=== PATIENT | female | born 1960 | race Caucasian/White ===

== ENCOUNTER → 2016-06-18 | Outpatient (CLI) | payer OTHER ==
--- NOTE | 2016-06-18 09:35 | MA ---
Screening Digital Mammogram Clinical Indications: Routine screening. Technique: Standard cephalocaudal and mediolateral oblique projections are obtained. This examinati on is processed by the [employer] computer aided detection system. Comparison: May 2015, May 2014, April 2013 and April 2012 Breast density: B; There are scattered fibroglandular densities. Findings: CAD was reviewed. No suspicious findings are identified. Impression: Negative mammogram. . BI-RADS 1. Recommendation: Routine screening is recommended in one year. [facility] will send a result letter to the patient. Negative mammography should not preclude additional workup of a clinically suspicious finding. The patient's information is entered into a reminder system with a target due date for her next mammo gram.
== END ==
LOC: CIMAGING 08:31
DX: Z12.31 Encounter for screening mammogram for malignant neoplasm of breast (principal)
CPT/HCPCS: G0202

== ENCOUNTER → 2016-10-07 | Outpatient (CLI) | payer OTHER | LOC: FIMAGING 14:14 | PROVIDERS: ATTEND Family Medicine | DX: Z13.820 Encounter for screening for osteoporosis (principal); Z82.62 Family history of osteoporosis ==

== ENCOUNTER → 2017-07-02 | Outpatient (CLI) | payer OTHER | LOC: CIMAGING 14:50 | PROVIDERS: ATTEND Family Medicine | DX: Z12.31 Encounter for screening mammogram for malignant neoplasm of breast (principal) ==

== ENCOUNTER → 2018-07-07 | Outpatient (CLI) | payer OTHER | LOC: CIMAGING 14:55 | PROVIDERS: ATTEND Family Medicine | DX: Z12.31 Encounter for screening mammogram for malignant neoplasm of breast (principal) ==

== ENCOUNTER 2018-10-23 10:16 | Observation (INO) | payer OTHER ==
--- NOTE | 2018-10-23 10:10 | EDPHY ---
H & P Time Seen by Provider: 10/23/18 10:16 Constitutional: Initial Vital Signs Temperature (C) 36.6 C 10/23/18 10:20 Heart Rate 81 10/23/18 10:20 Respiratory Rate 18 10/23/18 10:20 O2 Sat (%) 100 10/23/18 10:20 O2 Delivery Mode Room Air Allergies/Adverse Reactions: egg Allergy (Verified 10/23/18 11:33) kiwi Allergy (Verified 10/23/18 11:33) wheat Allergy (Verified 10/23/18 11:33) Home Medications: Medication Instructions Recorded Hydrochlorothiazide [HCTZ (RX)] 12/23/14 ALPRAZolam 10/23/18 Gabapentin 10/23/18 traMADol 10/23/18 Medical Decision Making ED Course/Re-evaluation: CHIEF COMPLAINT: Near-syncope HISTORY OF PRESENT ILLNESS: The patient is a 58 y/o female arriving via EMS complaining of feeling dizzy, shaky, and having tunnel vision intermittently for several days. Today after doing water aerobics the patient developed tunnel vision and tingling in her occipital lobe. She then felt dizzy and had extremity shaking for one hour. She does not believe that these symptoms are due to exercising or not eating breakfast as her morning routine was not different than normal today. Due to these symptoms she presented to an Urgent Care. They noticed that the patient had a potassium level of 3 from several days ago, which concerned them, so they sent her to the emergency department. While en route, EMS noted that the patient had frequent PVC's on the monitor which did not improve with 3L supplemental O2. Around 3 years ago she had similar symptoms of increasing dizzy spells and was told it was anxiety. However at that time the dizziness lasted only 1 minute, not an hour. No fever, headache, body aches, chest pain, heart palpitations, shortness of breath, cough, abdominal pain, urinary or bowel complaints, numbness. REVIEW OF SYSTEMS: A comprehensive 10 system review of systems is otherwise negative aside from elements mentioned in the history of present illness and medical decision making. PHYSICAL EXAM: HR, BP, O2 Sat, RR. Temp noted General Appearance: Alert, well hydrated, appropriate, and non-toxic appearing. Head: Atraumatic without scalp tenderness or obvious injury Eyes: Pupils equal, round, reactive to light and accommodation, EOMI, no trauma , no injection. Ears: Clear bilaterally, no perforation, normal landmarks Nose: Atraumatic, no rhinorrhea, clear. Throat: There is no erythema or exudates, no lesions, normal tonsils, mucus membranes moist. Neck: Supple, 2+ carotid upstroke, nontender, no lymphadenopathy. Respiratory: No retractions, no distress, no wheezes, and no accessory muscle use. Lungs are clear to auscultation bilaterally. Cardiovascular: Regular rate and rhythm, no murmurs, rubs, or gallops. Bilateral carotid, radial, dorsalis pedis, and posterior tibial pulses intact. Good capillary refill all extremities. Gastrointestinal: Abdomen is soft, nontender, non-distended, no masses, no rebound, no guarding, no peritoneal signs. Musculoskeletal: Normal active ROM of all extremities, atraumatic. Neurological: Alert, appropriate, and interactive. The patient has normal DTRs and non-focal cranial nerves, motor, sensory, and cerebellar exam. Skin: No rashes, good turgor, no nodules on palpation. Past medical history: Hypertension, chronic back pain, IBS Past surgical history: Denies Family history: Father had stroke Social history: at bedside, employed, lives in [place] DIAGNOSTICS/PROCEDURES/CRITICAL CARE TIME: EKG: The 12 lead EKG was interpreted by myself as sinus rhythm with a rate of 83 and multiple PVC's. See hard copy and/or "tracemaster" electronic copy for interpretation. DIFFERENTIAL DIAGNOSIS: The differential diagnosis for the patient's syncope included but was not limited to vasovagal syncope, arrhythmia, dehydration, cardiogenic causes, neurogenic causes, and blood loss. MEDICAL DECISION MAKING: The patient is a 58 y/o female arriving via EMS presenting with feeling dizzy, shaky, and having tunnel vision intermittently for several days. Today after doing water aerobics the patient developed tunnel vision and tingling in her occipital lobe. She then felt dizzy and had extremity shaking for one hour. While en route, EMS noted that the patient had frequent PVC's on the monitor. I believe she is having multiple episodes of near-syncope primarily after exercise. Patient will most likely need to be admitted for further observation and evaluation. She is comfortable with this plan. Labs and EKG ordered. 1016: I met EMS upon arrival. 1030: I interpreted patient's EKG as sinus rhythm with a rate of 83 and multiple PVC's. I will page cardiology. 1112: I consulted with the hospitalist service, Dr. Pleitez accepts admission of this patient. 1120: I consulted with [facility], who agrees to consult on this patient during her admission. - Data Points Laboratory Results: Laboratory Results 10/23/18 10:20 10/23/18 10:20 10/23/18 10/23/18 10/23/18 10:54 10:45 10:20 WBC RBC Hgb Hct MCV MCH MCHC RDW Plt Count MPV Neut % (Auto) Lymph % (Auto) [place] % (Auto) Eos % (Auto) Baso % (Auto) Nucleat RBC Rel Count Absolute Neuts (auto) Absolute Lymphs (auto) Absolute Monos (auto) Absolute Eos (auto) Absolute Basos (auto) Absolute Nucleated RBC Immature Gran % Immature Gran # Sodium Potassium Chloride Carbon Dioxide Anion Gap BUN Creatinine Estimated GFR Glucose Calcium Phosphorus Magnesium POC Troponin I 0.00 ng/mL ng/mL (0.00-0.08) NT-Pro-B Natriuret Pep Beta HCG, Qual NEGATIVE Urine Color COLORLESS Urine Appearance CLEAR Urine pH 9.0 H (5.0-7.5) Ur Specific [place] 1.003 (1.002-1.030) Urine Protein NEGATIVE (NEGATIVE) Urine Ketones NEGATIVE (NEGATIVE) Urine Blood NEGATIVE (NEGATIVE) Urine Nitrate NEGATIVE (NEGATIVE) Urine Bilirubin NEGATIVE (NEGATIVE) Urine Urobilinogen NEGATIVE EU EU (0.2-1.0) Ur Leukocyte Esterase NEGATIVE (NEGATIVE) Urine RBC 1-3 /hpf /hpf (0-3) Urine WBC 0-1 /hpf /hpf (0-3) Ur Epithelial Cells NONE SEEN /lpf /lpf (NONE-1+) Urine Glucose NEGATIVE (NEGATIVE) 10/23/18 10/23/18 10:20 10:20 WBC 5.28 10^3/uL 10^3/uL (3.80-9.50) RBC 5.03 10^6/uL 10^6/uL (4.18-5.33) Hgb 17.0 g/dL H g/dL (12.6-16.3) Hct 48.9 % H % (38.0-47.0) MCV 97.2 fL fL (81.5-99.8) MCH 33.8 pg pg (27.9-34.1) MCHC 34.8 g/dL g/dL (32.4-36.7) RDW 12.4 % % (11.5-15.2) Plt Count 295 10^3/uL 10^3/uL (150-400) MPV 9.5 fL fL (8.7-11.7) Neut % (Auto) 58.2 % % (39.3-74.2) Lymph % (Auto) 30.3 % % (15.0-45.0) [place] % (Auto) 9.7 % % (4.5-13.0) Eos % (Auto) 0.4 % L % (0.6-7.6) Baso % (Auto) 0.8 % % (0.3-1.7) Nucleat RBC Rel Count 0.0 % % (0.0-0.2) Absolute Neuts (auto) 3.08 10^3/uL 10^3/uL (1.70-6.50) Absolute Lymphs (auto) 1.60 10^3/uL 10^3/uL (1.00-3.00) Absolute Monos (auto) 0.51 10^3/uL 10^3/uL (0.30-0.80) Absolute Eos (auto) 0.02 10^3/uL L 10^3/uL (0.03-0.40) Absolute Basos (auto) 0.04 10^3/uL 10^3/uL (0.02-0.10) Absolute Nucleated RBC 0.00 10^3/uL 10^3/uL (0-0.01) Immature Gran % 0.6 % % (0.0-1.1) Immature Gran # 0.03 10^3/uL 10^3/uL (0.00-0.10) Sodium 138 mEq/L mEq/L (135-145) Potassium 3.4 mEq/L L mEq/L (3.5-5.2) Chloride 94 mEq/L L mEq/L (97-110) Carbon Dioxide 26 mEq/l mEq/l (22-31) Anion Gap 18 mEq/L H mEq/L (6-14) BUN 8 mg/dL mg/dL (7-23) Creatinine 0.5 mg/dL L mg/dL (0.6-1.0) Estimated GFR > 60 Glucose 82 mg/dL mg/dL (70-100) Calcium 11.1 mg/dL H mg/dL (8.5-10.4) Phosphorus 2.6 mg/dL mg/dL (2.5-4.5) Magnesium 1.9 mg/dL mg/dL (1.6-2.3) POC Troponin I NT-Pro-B Natriuret Pep 43 pg/mL pg/mL (0-125) Beta HCG, Qual Urine Color Urine Appearance Urine pH Ur Specific [place] Urine Protein Urine Ketones Urine Blood Urine Nitrate Urine Bilirubin Urine Urobilinogen Ur Leukocyte Esterase Urine RBC Urine WBC Ur Epithelial Cells Urine Glucose Point of Care Test Results: Chemistry 10/23/18 10:54 POC Troponin I 0.00 ng/mL ng/mL (0.00-0.08) Departure - Departure Disposition: [facility] Inpatient Acute Clinical Impression: Near syncope, PVC (premature ventricular contraction) Condition: Fair Referrals: Patient,NotPresent [Primary Care Provider] - As per Instructions Report Scribed for: Andrey Godwin Report Scribed by: Liza Modi Date of Report: 10/23/18 Time of Report: 10:38
[2018-10-23 10:35] LABS: PLATELET COUNT 295 10^3/uL (150-400)
--- NOTE | 2018-10-23 11:54 | PDGENHP ---
History and Physical - Chief Complaint faintness - History of Present Illness Patient is a 58-year-old female with past medical history of hypertension and chronic pain and anxiety presents to the emergency room with complaints of presyncope. The patient relates a approximately 3 year history of intermittent spells of feeling lightheadedness. She seems to think that the started sometime after starting menopause. However in the last week or so she has had more episodes of these feelings of lightheadedness. She denied symptoms of dizziness or like the room was spinning but more rather like she was about to faint. She has associated tunnel vision and prodrome symptoms seeing stars. She denied any feelings of racing heart or chest pain during these episodes. The episodes can come and go at any time and do not seem to be related to position, going to the bathroom, emotional stress or other triggers. Today after finishing an exercise class she was driving to work when she said she felt like she got tunnel vision and felt faint. She asked a friend to drive her to an urgent care. While at the urgent care she said that she started shaking uncontrollably although she never loss consciousness and was aware of the entire episode. She said she has had multiple episodes this week at the same symptoms which last only a minute or so. She denies any recent fevers chills diarrhea constipation poor p.o. Intake cough or other symptoms. History Information - Allergies/Home Medication List Allergies/Adverse Reactions: egg Allergy (Verified 10/23/18 11:33) kiwi Allergy (Verified 10/23/18 11:33) wheat Allergy (Verified 10/23/18 11:33) Home Medications: Hydrochlorothiazide [HCTZ (RX)] 12/23/14 [Last Taken Unknown] ALPRAZolam 10/23/18 [Last Taken Unknown] Gabapentin 10/23/18 [Last Taken Unknown] traMADol 10/23/18 [Last Taken Unknown] I have personally reviewed and updated: family history, medical history, social history, surgical history - Past Medical History Additional medical history: htn, chronic pain, headache, cervicalgia - Surgical History Additional surgical history: c section - Family History Positive for: non-pertinent - Social History Smoking Status: Former smoker Review of Systems Review of Systems: ROS: 10pt was reviewed & negative except for what was stated in HPI & below Physical Exam Physical Exam: Temp Pulse Resp BP Pulse Ox 36.6 C 92 16 174/110 H 97 05/10/19 10:20 10/23/18 11:30 10/23/18 11:30 10/23/18 11:30 10/23/18 11:30 Lab Data & Imaging Review 10/23/18 10:20 10/23/18 10:20 WBC 5.28 10^3/uL (3.80-9.50) 10/23/18 10:20 RBC 5.03 10^6/uL (4.18-5.33) 10/23/18 10:20 Hgb 17.0 g/dL (12.6-16.3) H 10/23/18 10:20 Hct 48.9 % (38.0-47.0) H 10/23/18 10:20 MCV 97.2 fL (81.5-99.8) 10/23/18 10:20 MCH 33.8 pg (27.9-34.1) 10/23/18 10: MCHC 34.8 g/dL (32.4-36.7) 10/23/18 10:20 RDW 12.4 % (11.5-15.2) 10/23/18 10:20 Plt Count 295 10^3/uL (150-400) 10/23/18 10:20 MPV 9.5 fL (8.7-11.7) 10/23/18 10:20 Neut % (Auto) 58.2 % (39.3-74.2) 10/23/18 10:20 Lymph % (Auto) 30.3 % (15.0-45.0) 10/23/18 10:20 [place] % (Auto) 9.7 % (4.5-13.0) 10/23/18 10:20 Eos % (Auto) 0.4 % (0.6-7.6) L 10/23/18 10:20 Baso % (Auto) 0.8 % (0.3-1.7) 10/23/18 10:20 Nucleat RBC Rel Count 0.0 % (0.0-0.2) 10/23/18 10:20 Absolute Neuts (auto) 3.08 10^3/uL (1.70-6.50) 10/23/18 10:20 Absolute Lymphs (auto) 1.60 10^3/uL (1.00-3.00) 10/23/18 10:20 Absolute Monos (auto) 0.51 10^3/uL (0.30-0.80) 10/23/18 10:20 Absolute Eos (auto) 0.02 10^3/uL (0.03-0.40) L 10/23/18 10:20 Absolute Basos (auto) 0.04 10^3/uL (0.02-0.10) 10/23/18 10:20 Absolute Nucleated RBC 0.00 10^3/uL (0-0.01) 10/23/18 10:20 Immature Gran % 0.6 % (0.0-1.1) 10/23/18 10:20 Immature Gran # 0.03 10^3/uL (0.00-0.10) 10/23/18 10:20 Sodium 138 mEq/L (135-145) 10/23/18 10:20 Potassium 3.4 mEq/L (3.5-5.2) L 10/23/18 10:20 Chloride 94 mEq/L (97-110) L 10/23/18 10:20 Carbon Dioxide 26 mEq/l (22-31) 10/23/18 10:20 Anion Gap 18 mEq/L (6-14) H 10/23/18 10:20 BUN 8 mg/dL (7-23) 10/23/18 10:20 Creatinine 0.5 mg/dL (0.6-1.0) L 10/23/18 10:20 Estimated GFR > 60 10/23/18 10:20 Glucose 82 mg/dL (70-100) 10/23/18 10:20 Calcium 11.1 mg/dL (8.5-10.4) H 10/23/18 10:20 Phosphorus 2.6 mg/dL (2.5-4.5) 10/23/18 10:20 Magnesium 1.9 mg/dL (1.6-2.3) 10/23/18 10:20 POC Troponin I 0.00 ng/mL (0.00-0.08) 10/23/18 10:54 NT-Pro-B Natriuret Pep 43 pg/mL (0-125) 10/23/18 10:20 Beta HCG, Qual NEGATIVE 10/23/18 10:20 Urine Color COLORLESS 10/23/18 10:45 Urine Appearance CLEAR 10/23/18 10:45 Urine pH 9.0 (5.0-7.5) H 10/23/18 10:45 Ur Specific [place] 1.003 (1.002-1.030) 10/23/18 10:45 Urine Protein NEGATIVE (NEGATIVE) 10/23/18 10:45 Urine Ketones NEGATIVE (NEGATIVE) 10/23/18 10:45 Urine Blood NEGATIVE (NEGATIVE) 10/23/18 10:45 Urine Nitrate NEGATIVE (NEGATIVE) 10/23/18 10:45 Urine Bilirubin NEGATIVE (NEGATIVE) 10/23/18 10:45 Urine Urobilinogen NEGATIVE EU (0.2-1.0) 10/23/18 10:45 Ur Leukocyte Esterase NEGATIVE (NEGATIVE) 10/23/18 10:45 Urine RBC 1-3 /hpf (0-3) 10/23/18 10:45 Urine WBC 0-1 /hpf (0-3) 10/23/18 10:45 Ur Epithelial Cells NONE SEEN /lpf (NONE-1+) 10/23/18 10:45 Urine Glucose NEGATIVE (NEGATIVE) 10/23/18 10:45 Assessment & Plan Assessment: 58-year-old female with past medical history of anxiety hypertension and chronic pain who presents to the emergency room with near-syncope Near syncope-I reviewed the patient's EKG which aside from a PVC does not show any arrhythmia. Vital signs are within normal limits. Her labs show only polycythemia. She does not look particularly dehydrated on examination. Differential for near syncope includes central versus peripheral causes including neurocardiogenic. Case discussed with Cardiology who is great see the patient. Echocardiogram is currently pending. If echo and telemetry are normal patient may need outpatient monitoring and evaluation advisor -under on telemetry -cards consulted -echo pending -check orthostatics PVC (premature ventricular contraction) (Acute)- mild hypokalemia noted on labs. Will check magnesium and sure lytes are all optimized. Echocardiogram pending and Cardiology consulted. Hypertension-takes hydrochlorothiazide. Polycythemia-she has an elevated H&H, does not smoke and does not live at altitude. Anxiety-takes Xanax. Chronic pain-on Neurontin and tramadol Prophylaxis-SCDs Fluids-intravenous saline Electrolytes-hypokalemia Nutrition-regular diet Cor-DNR Dispo-observation for near-syncope
[2018-10-23] MEDS ORDERED: ACETAMINOPHEN 325 MG TAB PO PRN (12:01)
[2018-10-23] MEDS ORDERED: ONDANSETRON 4 MG/2 ML VIAL IVP PRN (12:01)
[2018-10-23] MEDS ORDERED: ONDANSETRON DISINTEGRATING 4 MG TAB PO PRN (12:01)
[2018-10-23] MEDS ORDERED: NS 1,000 ML IV SCH (12:15)
--- NOTE | 2018-10-23 13:30 | ECHO ---
[email or web address] [address] Main: [phone] Echocardiography Examination Transthoracic Name: EAGLE VILLA MR#: [id number] Study Date: 10/23/2018 Study Time: 11:48 AM Date of : 1960 Age: 58 year(s) Height: 157.5 cm (62 in.) Weight: 45.36 kg (100 lb.) BSA: 1.42 m2 Gender: Female Examination: Echo Contrast: Image Quality: Rhythm: Normal sinus rhythm with ectopy Heart Rate: 73 bpm BP: 174 mmHg/120 mmHg Indication: Near Syncope Procedure Staff Referring Physician: Adoption Agent: Francois Phipps RDCS Reading Physician: Anjel Fernández MD Requesting Provider: Ordering Physician: Kristen Frias Indication: Near Syncope Measurements Chambers AV/MV Label Value Normal Value Label Value Normal Value LVOT Vmax 0.76 m/s (0.7m/s - 1.1m/s) AV PGmax 5 mmHg LVOTd 1.6 cm (1.8cm - 2cm) AV PGmean 2 mmHg LVOT VTI 13.2 cm (18cm - 22cm) AV Vmax 1.09 m/s LVDd, 2D 3.9 cm (3.9cm - 5.3cm) TIFFANIE (Vmax) 1.4 cm2 LVDs, 2D 2.5 cm (2.1cm - 4cm) TIFFANIE (VTI) 1.5 cm2 IVSd, 2D 0.7 cm (0.6cm - 1.1cm) MV E Vmax 0.45 m/s LVPWd, 2D 0.9 cm MV A Vmax 0.72 m/s LVEF, 2D 68 % (54% - 74%) MV E/A 0.62 LVOT PGmean 1 mmHg MV E/E' lateral 7.1 LVOT Vmean 0.46 m/s MV E/E' septal 10.7 (0.5 - 1.7) LA Volume, BP 28 ml (22ml - 52ml) MV E' septal 0.04 m/s LAESV index, BP 19.7 ml/m2 MR Vmax 3.26 m/s Additional Vessels MV E' lateral 0.06 m/s Label Value Normal Value MV E/E' mean 9 AoRoot, MM 2.8 cm (2.2cm - 3.7cm) MV E' mean 0.05 m/s TV/PV Label Value Normal Value RA Pressure 5 mmHg RVSP 32 mmHg Patient: EAGLE VILLA Study Date: 10/23/2018 Page 1 of 2 11:48 AM TR Pmax 27 mmHg TR Vmax 2.58 m/s PV PGmax 2 mmHg PV Vmax, Caliper 0.71 m/s (0.6m/s - 0.9m/s) Conclusions (1) Left ventricular systolic ejection fraction was normal (65%) - no LVH (2) Normal RV size and function (3) Normal atrial dimensions (4) Mild MR (5) Trileaflet aortic valve without sclerosis or insufficiency (6) Mild TR - RVSP was 32 mm Hg (7) Normal aorta dimensions (8) No pericardial effusion Findings Left Ventricle: Left ventricle is normal in size. The EF is visually estimated to be 65 %. EF range is estimated at 65 % - 70 %. Left ventricle wall thickness is normal. Left ventricular diastolic function parameters are normal. Right Ventricle: Normal size right ventricle. Right ventricular systolic function is normal. Left Atrium: The left atrium is normal in size. Right Atrium: The right atrium is normal in size. Mitral Valve: Mitral valve appears structurally normal. Mild mitral regurgitation. No mitral valve stenosis. Aortic Valve: Aortic leaflets are normal in appearance and function. No aortic valve regurgitation. There is no aortic stenosis. The aortic valve is trileaflet. Tricuspid Valve: Mild tricuspid regurgitation. Right Ventricular systolic pressure is measured at 32 mmHg. Pulmonary artery pressure normal. Pulmonic Valve: Pulmonic leaflets are normal in appearance and function. No pulmonic valve regurgitation is evident. Aorta: The aorta is normal. The aortic root size in M-mode measures 2.8 cm. Aorta Measurements AoRoot, MM is 2.8 cm. Pericardium: No pericardial effusion. Exam Details Procedure Ordered: Echo (No Signature Object) Patient: EAGLE VILLA Study Date: 10/23/2018 Page 2 of 2 11:48 AM [id number]
--- NOTE | 2018-10-23 13:44 | CPEKG ---
Test Reason : OPEN Blood Pressure : / mmHG Vent. Rate : 083 BPM Atrial Rate : 083 BPM P-R Int : 125 ms QRS Dur : 078 ms QT Int : 394 ms P-R-T Axes : 056 -05 027 degrees QTc Int : 463 ms Sinus rhythm Ventricular premature complex Confirmed by Andrey Godwin ([id number]) on 10/23/2018 1:43:59 PM Referred By: Andrey Godwin Confirmed By:Andrey Godwin
[2018-10-23 13:56] VITALS: BP 154/92
--- NOTE | 2018-10-23 15:23 | GCON ---
[f rep st] CONSULTATION CARDIOLOGY CONSULTATION DATE OF CONSULTATION: 10/23/2018 PRIMARY CARE PHYSICIAN: Dr. Dee Dee Amor REASON FOR CONSULTATION: We were asked by Dr. Bagley to evaluate the patient for her presyncope. HPI: The patient is a 58-year-old female, who appears to be a reliable historian. Her is pr esent in the room. She has a past medical history significant for hypertension, chronic pain and anx iety, who presented to the emergency department from the [facility] after increasing episodes o f presyncope. She reports at least a 3 year history of intermittent lightheadedness. This started a round the time of menopause as well as after a bout of shingles. At that time, she was diagnosed wit h panic attacks. She would note that they are more frequent when she would be walking, but then thes e went away. Last fall, she started to have episodes of dizzy spells again and she related it to scooby e increased emotional stress. That, however, has dissipated around August or so. She describes a gianna neling of vision with this sensation of feeling faint. Episodes typically last less than a minute. She had a recent episode that lasted 5 minutes, which was really unusual for her. She has never over tly lost consciousness. She exercises regularly with moderate intensity exercise such as hydro pump, yoga and other workout classes. With those she does not note any symptoms. On occasion she will fe el her heart has palpitations. She has recently started low-dose naltrexone and in is unsure if symp toms are related to that. She denies any chest pain, PND, orthopnea, edema. She has no worsening symptoms with head rotation. HOME MEDICATIONS: Include naproxen, multivitamin, naltrexone, Lidex, Lidoderm patch, hydrochlorothia zide, tramadol, and Neurontin. ALLERGIES: Eggs, kiwi, and wheat. FAMILY HISTORY: Father had a CVA at age 59, in his mid 50s he had coronary angioplasty. He passed a way at age 78. Her mother is alive and in good health. She has 2 brothers who are in good health. SOCIAL HISTORY: She is a former smoker, but she quit 30 years ago. She smoked from college onwards. At times, she was heavy up to a pack per day. She drinks about 2 drinks a couple of times a week. SURGICAL HISTORY: . PAST MEDICAL HISTORY: Hypertension, chronic pain, headaches and cervicalgia. REVIEW OF SYSTEMS: As per HPI. A complete 10-point review of systems was obtained and is negative e xcept for what is dictated. PHYSICAL EXAMINATION: VITAL SIGNS: BP of 147/89, heart rate 76, respirations 13, O2 saturation 97% on room air, temp of 98.4 degrees Fahrenheit. GENERAL: She is a thin appearing female, in no appare nt distress. HEENT: Normocephalic, atraumatic. Eyes without scleral icterus. NECK: Supple with n o JVD. No carotid bruits. HEART: Regular rate and rhythm. LUNGS: Clear. ABDOMEN: Soft with nor moactive bowel sounds. : Without Rees. SKIN: Warm and dry without edema. NEURO: No focal def icits detected. PSYCH: Normal mood and affect. LABORATORY DATA: CBC with WBC 5.28, hemoglobin 17, hematocrit 48.9, platelet count of 295. BMP with sodium 138, potassium 3.4, chloride 94, CO2 of 26, BUN 8, creatinine 0.5, glucose of 82, triglycerid es 137, total cholesterol 200, LDL 80, HDL of 93. A 12-lead ECG personally interpreted, demonstrates sinus rhythm with leftward axis. There is 1 PVC p resent. Echocardiogram from today shows LV systolic ejection fraction of 65% with no LVH. There is normal RV size and function. Normal atrial dimensions. Mild MR. Mild TR. RVSP of 32. Telemetry r eview reviewed shows PVCs occasionally in bigeminal pattern. IMPRESSION AND PLAN: The patient is a 58-year-old female who presents with an acute exacerbation of some lightheadedness with presyncope. Thus far, her workup has been unremarkable except for occasion al PVCs on monitoring. Given her past tobacco history, we will check carotid Dopplers. Possible leticia ologies can be depression and anxiety. We will rule out arrhythmia due to high premature ventricular contractions burden by outpatient heart monitor. We will consider a 1 week Zio Patch. If her carot id Dopplers are normal, she may be discharged home with outpatient followup. /[id number]/MODL
--- NOTE | 2018-10-23 16:30 | PDDCSUM ---
Discharge Summary Discharge Summary: Discharge diagnosis presyncope Hypertension Hypokalemia Anxiety Chronic pain Patient is a 58-year-old female who was admitted with symptoms of presyncope. EKG in the emergency room showed a sinus rhythm with PVCs but otherwise no explanation for symptoms. Cardiology was consulted and echocardiogram was obtained. Echocardiogram showed normal left ventricular ejection fraction and was essentially unremarkable. Cardiology recommended a carotid ultrasound which was also obtained and showed normal-looking carotids. Because of her hypokalemia her hydrochlorothiazide was discontinued and she was started on amlodipine 2.5 mg daily. Cardiology ordered an outpatient event monitor. The patient was discharged with the event monitor to follow up with Cardiology. She was also recommended to follow up with primary care physician for further evaluation of her hypertension and further titration of her amlodipine. Disposition Home independent New medications Amlodipine 2.5 mg daily I spent over 30 min on the discharge of this patient
== END 2018-10-23 17:03 | disposition home or self-care (01) ==
LOC: EDUNIT# → EDBD → F2W 12:20
PROVIDERS: ADMIT Internal Medicine; ATTEND Internal Medicine
DX: R55 Syncope and collapse (principal); I10 Essential (primary) hypertension; E87.6 Hypokalemia; F41.9 Anxiety disorder, unspecified; G89.29 Other chronic pain; Z87.891 Personal history of nicotine dependence
CPT/HCPCS: 93005; 93306; 93880; 99285; G0378; 84484-ER

== ENCOUNTER → 2018-12-04 | Outpatient (CLI) | payer OTHER | LOC: EMCIMAGING 10:04 ==